=== PATIENT | female | born 1985 | race Caucasian/White ===

== ENCOUNTER 2025-02-26 01:38 | Emergency (ER) | payer OTHER, BC ==
[~2025-02-26] VITALS: Ht 160 cm; Wt 67.5 kg
[2025-02-26] MEDS ORDERED: HYDROCODONE BIT/ACETAMINOPHEN 5/325 MG 1 TAB HOME.PACK PO ONE (03:00)
[2025-02-26] MEDS ORDERED: HYDROmorphone HCL 1 MG/ML SYR IV PRN (03:00)
[2025-02-26] MEDS ORDERED: HYDROCODON-ACE1 EA10 PO (03:04)
[2025-02-26 03:26] VITALS: BP 137/82
== END 2025-02-26 03:50 | disposition home or self-care (01) ==
LOC: ED 01:38
DX: S62.242A Displaced fracture of shaft of first metacarpal bone, left hand, initial encounter for closed fracture (principal); W01.0XXA Fall on same level from slipping, tripping and stumbling without subsequent striking against object, initial encounter; Y93.02 Activity, running
CPT/HCPCS: 26605; 73130; 99283-25; A9270